=== PATIENT | female | born 1940 | race Caucasian/White ===

== ENCOUNTER → 2017-05-19 | Outpatient (CLI) | payer OTHER, BC ==
[~2017-05-19] MED LIST: CO Q-10100 MG PO; CRESTOR20 MG PO; LOSARTAN-HCTZ1 EAC1 PO; NORVASC5 MG PO; TUMS PO; VITAMIN D31000 UNI2 PO
== END ==
LOC: RAD 13:46
DX: Z12.31 Encounter for screening mammogram for malignant neoplasm of breast (principal)

== ENCOUNTER → 2018-07-08 | Outpatient (CLI) | payer OTHER, BC | LOC: RAD 01:07 | DX: Z12.31 Encounter for screening mammogram for malignant neoplasm of breast (principal) ==

== ENCOUNTER → 2019-11-07 | Outpatient (CLI) | payer OTHER, BC | LOC: BC 11:54 | PROVIDERS: ATTEND Internal Medicine | DX: Z12.31 Encounter for screening mammogram for malignant neoplasm of breast (principal) ==